=== PATIENT | female | born 1995 | race Caucasian/White ===

== ENCOUNTER 2021-09-24 16:48 | Emergency (ER) | payer MEDICAID, SELFPAY ==
--- NOTE | 2021-09-24 16:53 | USR_ITS ---
PROCEDURE INFORMATION: Exam: US , Transvaginal Exam date and time: 09/24/2021 5:11 PM Age: 26 years old Clinical indication: Lmp or gestational age (in weeks): Per patient 10w0d. Per US 8w1d; Antepartum complications; Bleeding; ; Additional info: Vaginal bleeding TECHNIQUE: Imaging protocol: Real-time transvaginal obstetrical ultrasound of the maternal pelvis with image documentation. Transvaginal imaging was used for better evaluation of the fetus, adnexa, and/or cervix. COMPARISON: US [facility] OB > 14 weeks 02/12/2018 11:12 AM FINDINGS: Gestation: Single intrauterine fetus. Negative for heart tones visualized, findings potentially reflect demise, close clinical correlation and interval follow-up exam advised. Placenta: 14 mm subchorionic hemorrhage suspected. BIOMETRY: Gestational age (AUA): Ultrasonographic age 8 weeks 0 days based on crown-rump length. US/US OB <=14 wk fetus w transvag IMPRESSION: 1. Single intrauterine fetus. 2. Ultrasonographic age 8 weeks 0 days based on crown-rump length. 3. Negative for heart tones visualized, findings potentially reflect demise, close clinical correlation and interval follow-up exam advised. 4. 14 mm subchorionic hemorrhage suspected.
[2021-09-24 17:02] VITALS: BP 106/72; PULSE 78; RESP 16; TEMP 36.8; O2SAT 99
[2021-09-24 18:26] LABS: Basophils # 0.1 10^3/uL (0.0-0.1); Basophils % 0.7 %; Eosinophils # 0.1 10^3/uL (0.0-0.8); Eosinophils % 1.5 %; Hematocrit 35.9 % (37.0-47.0); Hemoglobin 12.7 g/dL (11.5-15.3); Lymphocytes # 2.1 10^3/uL (0.8-4.8); Lymphocytes % 27.8 %; Mean Corpuscular HGB Conc 35.4 g/dL (30.0-36.0); Mean Corpuscular Hemoglobin 30.4 pg (28.0-34.0); Mean Corpuscular Volume 85.9 fl (81-99); Mean Platelet Volume 10.6 fL (7.4-10.4); Monocytes # 0.6 10^3/uL (0.2-0.9); Monocytes % 8.4 %; Neutrophils # 4.58 10^3/uL (1.8-7.7); Neutrophils % 61.3 %; Nucleated Red Blood Cells % 0 %; Platelet Count 178 10^3/cmm (130-400); Red Blood Count 4.18 10^6/uL (4.1-5.3); Red Cell Distribution Width 12.2 % (12.1-15.1); White Blood Count 7.5 10^3/uL (4.0-10.0)
--- NOTE | 2021-09-24 18:37 | W.ED.GENADLT ---
HPI - General Adult General: Chief complaint: Urogenital-Female Stated complaint: 10 weeks and bleeding Time Seen by Provider: 09/24/21 18:23 History of Present Illness: Patient is a 26-year-old female G2, P1 at 10 weeks presenting to the emergency room for concerns of 3 days of vaginal bleeding and cramps. Patient tells me that she first noticed spotting 3 days ago. Since then, patient has noticed increased bleeding today. Patient also reports cramps today. Patient denies any passage of clots or heavy bleeding. Patient denies any regular contractions. Patient denies any fever/chills, abdominal pain, diarrhea melena/hematochezia. Patient has no complaints or increased vaginal discharge different from her usual. Onset:3 days ago Duration:3 days Location:home Severity: moderate Associated symptoms: Deny chest pain, dyspnea, nausea, rash, palpitations or vomiting Review of Systems Const: Denies: fever(s) or chills Eyes: Denies: change in vision ENMT: Denies: mouth pain Card: Denies: chest pain or palpitations Resp: Denies: dyspnea or non-productive cough GI: Denies: abdominal pain, nausea, vomiting or diarrhea : Reports: other (+vaginal bleeding and cramps); Denies: dysuria Musc: Denies: extremity pain Skin/Breast: Denies: rash or new lesions Neuro: Denies: weakness in extremities Psych: Reports: other (Normal mood) Jose/Lymph: Denies: easy bruising PFSH ED PFSH: Medical History (Updated 09/24/21 @ 18:38 by Manuel Rick MD) IUP (intrauterine ), incidental Family History Father Hypertension Social History Smoking and tobacco status: former smoker Second hand smoke exposure: No Smoking risk assessment/counseling performed?: No Alcohol intake: never Desire information about alcohol rehabilitation?: No Counseling given: No Desire information about substance/drug rehabilitation?: No Counseling given: No Adopted: No Caregiver/support person: No Lives independently: Yes Household members: children Housing: Apartment Marital status: Single service: No Current occupational status: employed History of recent travel: No Physical Exam Const: COMMON NORMALS: alert HENMT: COMMON NORMALS: atraumatic HEAD & SCALP: atraumatic MOUTH: moist mucous membranes not abnormal Eye: COMMON NORMALS: EOMs intact bilaterally and conjunctivae normal CONJUNCTIVA: Yes conjunctivae normal Neck/C-Spine: COMMON NORMALS: full ROM and supple Resp: COMMON NORMALS: normal respiratory effort and clear to auscultation bilaterally AUSCULTATION: clear to auscultation bilaterally Cardio: COMMON NORMALS: regular rate RATE: regular rate GI: COMMON NORMALS: Soft to palpation and non-tender PALPATION: Yes Soft to palpation OTHER: No focal TTP. NO guarding rebound, guarding, rigidity. No CVA tenderness to percussion. Neg Hurley/Neg McBurney's point tenderness, no suprabupic tenderness to palpation. : OTHER: Exam deferred by patient to OB Extremity: COMMON NORMALS: full ROM Neuro: SENSORIUM/ORIENTATION: Yes alert MOTOR EXAM: No Abnormal motor strength present and Other motor observations present (no focal motor deficits) Psych: COMMON NORMALS: speech normal SPEECH: Yes normal speech MOOD & AFFECT: Yes euthymic mood Course Vital Signs: Vital signs: Vital Signs Temperature 98.3 F 09/24/21 17:02 Pulse Rate 78 09/24/21 17:02 Respiratory Rate 16 09/24/21 17:02 Blood Pressure 106/72 09/24/21 17:02 Pulse Oximetry 99 09/24/21 17:02 [facility] - General Adult Medical Decision Making Patient is a 26-year-old female G2, P1 at 10 weeks presenting to the emergency room with 3 days of vaginal bleeding with pelvic cramps. On physical exam, patient does not have any signs of conjunctival pallor. Hemoglobin of 12.7 today. Patient denies having active or heavy vaginal bleeding. I have offered pelvic exam however patient declined. Ultrasound showed IUP without any heart rate consistent with possible early demise. Given patient close follow-up with primary care provider for reassessment and reevaluation. Patient is O+ and will not require rhogam. I have given patient follow up with our telehealth case manager to be seen by our outpatient OB for reassessment for possible demise. Patient aware of a call from our telehealth case manager to schedule for appointment(s) and verbalizes understanding of the importance of following up. Patient reassures she will follow up with Dr. Roylance. Rx tylenol PRN pain Disposition: Discharge. Patient counseled regarding diagnostic impression, treatment plan. Patient given ED strict return precautions to return for continuation, worsening, or development of new symptoms. Instructed to f/u w/ OB regarding symptoms today. Patient verbalized understanding. Lab Data : 09/24/21 18:00 09/24/21 18:00 Radiology Impressions Obstetrics Ultrasound 09/24/21 16:53 IMPRESSION: 1. Single intrauterine fetus. 2. Ultrasonographic age 8 weeks 0 days based on crown-rump length. 3. Negative for heart tones visualized, findings potentially reflect demise, close clinical correlation and interval follow-up exam advised. 4. 14 mm subchorionic hemorrhage suspected. Laboratory Results WBC 7.5 10^3/uL (4.0-10.0) 09/24/21 18:00 RBC 4.18 10^6/uL (4.1-5.3) 09/24/21 18:00 Hgb 12.7 g/dL (11.5-15.3) 09/24/21 18:00 Hct 35.9 % (37.0-47.0) L 09/24/21 18:00 MCV 85.9 fl (81-99) 09/24/21 18:00 MCH 30.4 pg (28.0-34.0) 09/24/21 18:00 MCHC 35.4 g/dL (30.0-36.0) 09/24/21 18:00 RDW 12.2 % (12.1-15.1) 09/24/21 18:00 Plt Count 178 10^3/cmm (130-400) 09/24/21 18:00 MPV 10.6 fL (7.4-10.4) H 09/24/21 18:00 Neut % (Auto) 61.3 % 09/24/21 18:00 Lymph % (Auto) 27.8 % 09/24/21 18:00 [place] % (Auto) 8.4 % 09/24/21 18:00 Eos % (Auto) 1.5 % 09/24/21 18:00 Baso % (Auto) 0.7 % 09/24/21 18:00 Neut # (Auto) 4.58 10^3/uL (1.8-7.7) 09/24/21 18:00 Lymph # (Auto) 2.1 10^3/uL (0.8-4.8) 09/24/21 18:00 [place] # (Auto) 0.6 10^3/uL (0.2-0.9) 09/24/21 18:00 Eos # (Auto) 0.1 10^3/uL (0.0-0.8) 09/24/21 18:00 Baso # (Auto) 0.1 10^3/uL (0.0-0.1) 09/24/21 18:00 Nucleated RBC % (auto) 0 % 09/24/21 18:00 Nucleated RBCs # 0.0 /100WBC 09/24/21 18:00 Sodium 136 mmol/L (136-145) 09/24/21 18:00 Potassium 3.6 mmol/L (3.5-5.1) 09/24/21 18:00 Chloride 102 mmol/L (98-107) 09/24/21 18:00 Carbon Dioxide 24 mmol/L (22-29) 09/24/21 18:00 Anion Gap 13.6 (5-19) 09/24/21 18:00 BUN 8 mg/dL (6-20) 09/24/21 18:00 Creatinine 0.4 mg/dL (0.5-0.9) L 09/24/21 18:00 GFR Calculation 196.1 mL/min (90-130) H 09/24/21 18:00 Glucose 93 mg/dL (65-115) 09/24/21 18:00 Calculated Osmolality 280 mOsm/kg (285-295) L 09/24/21 18:00 Calcium 9.6 mg/dL (8.5-10.5) 09/24/21 18:00 Total Bilirubin 0.3 mg/dL (0.15-1.2) 09/24/21 18:00 AST 14 U/L (0-32) 09/24/21 18:00 ALT 11 U/L (0-33) 09/24/21 18:00 Alkaline Phosphatase 59 IU/L (35-105) 09/24/21 18:00 Total Protein 7.1 g/dL (6.6-8.7) 09/24/21 18:00 Albumin 4.9 g/dL (3.5-5.2) 09/24/21 18:00 Globulin 2.2 g/dL (1.3-4.6) 09/24/21 18:00 Lipase 25 U/L (13-60) 09/24/21 18:00 Ser , Semi-Qnt 21031.00 mIU/mL 09/24/21 18:00 Blood Type O Positive 09/24/21 18:00 Rho(D) Type Positive 09/24/21 18:00 Imaging Data Other Imaging: Radiologist's impression: [employer] [address] Ultrasound Report Signed Patient: Karen Gonzalez Unit #: [id number] : 1995 Age/Sex: 26 / F ADM Date: 09/24/21 Loc: ER Room/Bed: Attending Dr: Ordering Provider/Ordering MD: Manuel Rick MD Date of Service: 09/24/21 Procedure(s): US OB <=14 wk fetus w transvag Accession Number(s): [id number] Report Number: [id number] PROCEDURE INFORMATION: Exam: US , Transvaginal Exam date and time: 09/24/2021 5:11 PM Age: 26 years old Clinical indication: Lmp or gestational age (in weeks): Per patient 10w0d. Per US 8w1d; Antepartum complications; Bleeding; ; Additional info: Vaginal bleeding TECHNIQUE: Imaging protocol: Real-time transvaginal obstetrical ultrasound of the maternal pelvis with image documentation. Transvaginal imaging was used for better evaluation of the fetus, adnexa, and/or cervix. [place] [facility] [place] 14 [place] 11:12 AM FINDINGS: Gestation: Single intrauterine fetus. Negative for heart tones visualized, findings potentially reflect demise, close clinical correlation and interval follow-up exam advised. Placenta: 14 mm subchorionic hemorrhage suspected. BIOMETRY: Gestational age (AUA): Ultrasonographic age 8 weeks 0 days based on crown-rump length. US/US OB <=14 wk fetus w transvag IMPRESSION: 1. Single intrauterine fetus. 2. Ultrasonographic age 8 weeks 0 days based on crown-rump length. 3. Negative for heart tones visualized, findings potentially reflect demise, close clinical correlation and interval follow-up exam advised. 4. 14 mm subchorionic hemorrhage suspected. ? Dictated By: Fritz Mcclure MD Signed By: Fritz Mcclure MD Signed Date/Time: 09/24/21 1823 DD/ 171 Discharge Plan Discharge Patient Disposition: Home Clinical Impression: Threatened miscarriage Condition: Stable Prescriptions: New acetaminophen 500 mg tablet 500 mg PO Q6H PRN (Reason: pain) 5 Days Qty: 20 0RF No Action buspirone 10 mg tablet See Rx Instructions PO BID Qty: 60 5RF Rx Instructions: 1/2-1 tab as needed for anxiety BID citalopram [Celexa] 10 mg tablet 10 mg PO DAILY Qty: 30 5RF Discharge Orders: Discharge ED (Routine); Ordered 09/24/21 Ordered By: Manuel Rick Referrals: Milagros Gonzalez FNP-C [Primary Care Provider] - Discharge Diet: Advance as tolerated Discharge Activity: Increase activity as tolerated Patient Instructions: Miscarriage (ED) Activity Restrictions/Additional Instructions: Our telehealth case manager will have you follow-up with an obstretrician in the next few days. You would be expected to have a phone call with our telehealth case manager who will put you on the schedule. You can expect a call from us in the next 2-3 days. If you don't hear from us, call us back in the emergency room at [phone]. Here's a copy of your US report: [address] [address] Ultrasound Report Signed Patient: Karen Gonzalez Unit #: [id number] : 1995 Age/Sex: 26 / F ADM Date: 09/24/21 Loc: ER Room/Bed: Attending Dr: Ordering Provider/Ordering MD: Manuel Rick MD Date of Service: 09/24/21 Procedure(s): US OB <=14 wk fetus w transvag Accession Number(s): [id number] Report Number: [id number] PROCEDURE INFORMATION: Exam: US , Transvaginal Exam date and time: 09/24/2021 5:11 PM Age: 26 years old Clinical indication: Lmp or gestational age (in weeks): Per patient 10w0d. Per US 8w1d; Antepartum complications; Bleeding; ; Additional info: Vaginal bleeding TECHNIQUE: Imaging protocol: Real-time transvaginal obstetrical ultrasound of the maternal pelvis with image documentation. Transvaginal imaging was used for better evaluation of the fetus, adnexa, and/or cervix. [place] [facility] [place] > 14 weeks [place]/12/[place] 11:12 AM FINDINGS: Gestation: Single intrauterine fetus. Negative for heart tones visualized, findings potentially reflect demise, close clinical correlation and interval follow-up exam advised. Placenta: 14 mm subchorionic hemorrhage suspected. BIOMETRY: Gestational age (AUA): Ultrasonographic age 8 weeks 0 days based on crown-rump length. US/US OB <=14 wk fetus w transvag IMPRESSION: 1. Single intrauterine fetus. 2. Ultrasonographic age 8 weeks 0 days based on crown-rump length. 3. Negative for heart tones visualized, findings potentially reflect demise, close clinical correlation and interval follow-up exam advised. 4. 14 mm subchorionic hemorrhage suspected. ? Dictated By: Fritz Mcclure MD Signed By: Fritz Mcclure MD Signed Date/Time: 09/24/21 1823 DD/ 1711 Coding Level of Care Code ED Director Of Counseling for Chg Fwd Exam Comprehensive
[2021-09-24 18:52] LABS: Alanine Aminotransferase 11 U/L (0-33); Albumin Level 4.9 g/dL (3.5-5.2); Alkaline Phosphatase 59 IU/L (35-105); Anion Gap 13.6 (5-19); Aspartate Amino Transferase 14 U/L (0-32); Blood Urea Nitrogen 8 mg/dL (6-20); Calcium 9.6 mg/dL (8.5-10.5); Carbon Dioxide 24 mmol/L (22-29); Chloride 102 mmol/L (98-107); Globulin 2.2 g/dL (1.3-4.6); Glomerular Filtration Rate 196.1 mL/min (90-130); Glucose 93 mg/dL (65-115); Lipase 25 U/L (13-60); Osmolality Calculated 280 mOsm/kg (285-295); Potassium 3.6 mmol/L (3.5-5.1); Sodium 136 mmol/L (136-145); Total Bilirubin 0.3 mg/dL (0.15-1.2); Total Protein 7.1 g/dL (6.6-8.7)
--- NOTE | 2021-09-28 11:17 | DCPLANNER ---
Addendum entered by Jaelyn Lipscomb 10/30/21 13:34: patient is following up with primary care physician. Original Note: manager water wastewater had message to schedule a follow up appointment for patient with [facility]. manager water wastewater sent patients information to the front office staff at [facility]. Patients information will be printed and reviewed. Clinic will call patient with appointment information.
== END 2021-09-24 19:04 | disposition home or self-care (01) ==
PROVIDERS: Emergency Provider Emergency Medicine; PCP Nurse Practitioner Family
DX: O20.0 Threatened abortion (principal); Z3A.10 10 weeks gestation of pregnancy; Z87.891 Personal history of nicotine dependence
CPT/HCPCS: 76801; 76817; 80053; 83690; 84702; 85025; 86900; 99283

== ENCOUNTER 2021-10-05 08:17 | Emergency (ER) | payer MEDICAID, SELFPAY ==
[2021-10-05 08:29] VITALS: BP 107/64; PULSE 98; RESP 14; TEMP 36.9; O2SAT 99; BMI 19.0
[2021-10-05 08:35] VITALS: BP 98/71; PULSE 107; RESP 16; O2SAT 100
--- NOTE | 2021-10-05 08:41 | ED_ITS ---
HPI - Female Genitourinary General: Chief complaint: Vaginal Bleeding Stated complaint: vaginal bleeding Time Seen by Provider: 10/05/21 08:24 Source: patient and family Mode of arrival: ambulatory Limitations: no limitations History of Present Illness: Patient is a 26-year-old female who presents to [facility] ED today along with her mother for concerns of continued vaginal bleeding related to her recent miscarriage. Patient was seen at our facility on 09/24 for vaginal bleeding. She was approximately (by history) 10 weeks . Ultrasound at that time showed an 8-week gestation with no heart rate. hCG at that time was roughly 12,500. Patient states following her visit she continued to bleed and cramp for several days but states it had been improving. She followed up with her OB provider Dr. Desai who repeated hCG and patient thinks it was roughly 1600. He also performed pelvic exam. Patient states she became concerned yesterday evening when she began bleeding heavily and passing v polly large clots. She does report feeling a little lightheaded. Patient does not complain much of pelvic pain or cramping. MD elicited complaint: vaginal bleeding and other (active miscarriage ) Associated symptoms: Deny abdominal pain or nausea Review of Systems Const: Denies: fever(s), chills, body aches, fatigue or malaise Card: Denies: chest pain Resp: Denies: dyspnea GI: Denies: abdominal pain, nausea, vomiting or diarrhea : Reports: vaginal bleeding; Denies: flank pain, dysuria or pelvic pain Musc: Denies: back pain Neuro: Denies: weakness in extremities, difficulty walking or confusion [facility] ED PFSH: Medical History IUP (intrauterine ), incidental Family History Father Hypertension Social History Smoking and tobacco status: former smoker Second hand smoke exposure: No Smoking risk assessment/counseling performed?: No Alcohol intake: never Desire information about alcohol rehabilitation?: No Counseling given: No Desire information about substance/drug rehabilitation?: No Counseling given: No Adopted: No Caregiver/support person: No Lives independently: Yes Household members: children Housing: Apartment Marital status: Single service: No Current occupational status: employed History of recent travel: No Physical Exam Const: COMMON NORMALS: no acute distress, patient oriented x3, no limitations and alert GENERAL APPEARANCE: cooperative NUTRITIONAL APPEARANCE: thin ORIENTATION/CONSCIOUSNESS: Yes awake, Yes oriented to person, Yes oriented to place and Yes oriented to time HENMT: COMMON NORMALS: normocephalic and atraumatic HEAD & SCALP: normal to inspection, normocephalic and atraumatic Resp: COMMON NORMALS: normal respiratory effort and clear to auscultation bilaterally AUSCULTATION: clear to auscultation bilaterally Cardio: COMMON NORMALS: regular rate and regular rhythm RATE: regular rate RHYTHM: regular rhythm GI: COMMON NORMALS: Normal to inspection, nondistended, normoactive bowel sounds present, Soft to palpation, non-tender, No hepatosplenomegaly present and no masses PALPATION: Yes Soft to palpation and Yes No hepatosplenomegaly present : COMMON NORMALS: Yes no CVA tenderness BLADDER/KIDNEY EXAM: Yes no CVA tenderness Back/Pelvis: COMMON NORMALS: no CVA tenderness Extremity: GENERAL: Yes normal exam except as noted Neuro: PARISH COMA SCALE: document GCS findings Parish coma scale eye opening: Spontaneous Parish coma scale verbal response: Orientated Parish coma scale motor response: Obey commands Parish coma scale total score: 15 COMMON NORMALS: patient oriented x3, moves all extremities, no focal motor deficits and no sensory deficits noted SENSORIUM/ORIENTATION: Yes alert, Yes oriented to person, Yes oriented to place and Yes oriented to time Skin: COMMON NORMALS: no rashes or lesions noted GENERAL SKIN EXAM: no rashes or lesions noted Course Vital Signs: Vital signs: Vital Signs Temperature 98.4 F 10/05/21 08:29 Pulse Rate 98 10/05/21 08:29 Respiratory Rate 14 10/05/21 08:29 Blood Pressure 107/64 10/05/21 08:29 Pulse Oximetry 99 10/05/21 08:29 MDM - Female Medical Decision Making Patient's vital signs are stable. Her hemoglobin is 12.8 today which is actually higher than her last visit. hCG is roughly 1350 was continuing to trend downward. US shows passage of previously seen fetus. She still does have some clotted blood products consistent with an incomplete spontaneous AB. Discussed with patient that most women will bleed for approximately 8 to 14 days following diagnosis of a miscarriage. She needs to follow-up with her OB provider Dr. Desai next week if bleeding persists. Strict return to ED precautions given regarding the weekend/holiday weekend. Lab Data : 10/05/21 08:55 Radiology Impressions Transvaginal US 10/05/21 08:50 IMPRESSION: 1. Incomplete spontaneous . No pole or cardiac activity remain. 2. Heterogeneous clotted blood products along the endometrial canal. Laboratory Results WBC 6.4 10^3/uL (4.0-10.0) 10/05/21 08:55 RBC 4.26 10^6/uL (4.1-5.3) 10/05/21 08:55 Hgb 12.8 g/dL (11.5-15.3) 10/05/21 08:55 Hct 36.2 % (37.0-47.0) L 10/05/21 08:55 MCV 85.0 fl (81-99) 10/05/21 08:55 MCH 30.0 pg (28.0-34.0) 10/05/21 08:55 MCHC 35.4 g/dL (30.0-36.0) 10/05/21 08:55 RDW 12.2 % (12.1-15.1) 10/05/21 08:55 Plt Count 196 10^3/cmm (130-400) 10/05/21 08:55 MPV 10.5 fL (7.4-10.4) H 10/05/21 08:55 Neut % (Auto) 68.4 % 10/05/21 08:55 Lymph % (Auto) 23.0 % 10/05/21 08:55 [place] % (Auto) 7.2 % 10/05/21 08:55 Eos % (Auto) 0.6 % 10/05/21 08:55 Baso % (Auto) 0.5 % 10/05/21 08:55 Neut # (Auto) 4.36 10^3/uL (1.8-7.7) 10/05/21 08:55 Lymph # (Auto) 1.5 10^3/uL (0.8-4.8) 10/05/21 08:55 [place] # (Auto) 0.5 10^3/uL (0.2-0.9) 10/05/21 08:55 Eos # (Auto) 0.0 10^3/uL (0.0-0.8) 10/05/21 08:55 Baso # (Auto) 0.0 10^3/uL (0.0-0.1) 10/05/21 08:55 Nucleated RBC % (auto) 0 % 10/05/21 08:55 Nucleated RBCs # 0.0 /100WBC 10/05/21 08:55 Ser , Semi-Qnt 1344.00 mIU/mL 10/05/21 08:55 Discharge Plan Discharge Patient Disposition: Home Clinical Impression: Incomplete spontaneous Condition: Stable Prescriptions: No Action buspirone 10 mg tablet See Rx Instructions PO BID Qty: 60 5RF Rx Instructions: 1/2-1 tab as needed for anxiety BID citalopram [Celexa] 10 mg tablet 10 mg PO DAILY Qty: 30 5RF Discharge Orders: Discharge ED (Routine); Ordered 10/05/21 Ordered By: Lexy Medina Patient Instructions: Spontaneous Coding Level of Care Code ED Chemical Sprayer for [place] Fwd Exam Comprehensive
--- NOTE | 2021-10-05 08:50 | US_ITS ---
WS: [id number] Obstetrical ultrasound, early. COMPARISON: 09/24/2021. HISTORY: Vaginal bleeding with cramping. Transvaginal imaging is performed. Anteverted uterus. The previously described intrauterine gestation is no longer present. There is now heterogeneous material within the endometrial canal consistent wi th clotted blood. No cardiac activity or pole is identified. The cervix is closed. No free fluid. Both ovaries are identified and normal size. No adnexal mass. US/US OB transvaginal [id number] IMPRESSION: 1. Incomplete spontaneous . No pole or cardiac activity remain. 2. Heterogeneous clotted blood products along the endometrial canal.
[2021-10-05] MEDS: sodium chloride 0.9% 1,000 ML 999 ML IV (09:01)
[2021-10-05 09:05] VITALS: BP 102/73; PULSE 100; RESP 15; O2SAT 96
[2021-10-05 09:09] LABS: Basophils % 0.5 %; Eosinophils % 0.6 %; Hematocrit 36.2 % (37.0-47.0); Hemoglobin 12.8 g/dL (11.5-15.3); Lymphocytes # 1.5 10^3/uL (0.8-4.8); Mean Corpuscular HGB Conc 35.4 g/dL (30.0-36.0); Mean Platelet Volume 10.5 fL (7.4-10.4); Monocytes # 0.5 10^3/uL (0.2-0.9); Monocytes % 7.2 %; Neutrophils # 4.36 10^3/uL (1.8-7.7); Neutrophils % 68.4 %; Nucleated Red Blood Cells % 0 %; Platelet Count 196 10^3/cmm (130-400); Red Blood Count 4.26 10^6/uL (4.1-5.3); Red Cell Distribution Width 12.2 % (12.1-15.1); White Blood Count 6.4 10^3/uL (4.0-10.0)
[2021-10-05 09:35] VITALS: BP 95/69; PULSE 87; RESP 14; O2SAT 100
[2021-10-05 10:03] VITALS: BP 96/67; PULSE 95; RESP 14; O2SAT 100
== END 2021-10-05 10:05 | disposition home or self-care (01) ==
PROVIDERS: Emergency Provider Physician Assistant
DX: O03.4 Incomplete spontaneous abortion without complication (principal); Z87.891 Personal history of nicotine dependence
CPT/HCPCS: 76817; 84702; 85025; 96360; 99284; J7030

== ENCOUNTER → 2021-10-11 16:16 | Outpatient (BNVA) | payer MEDICAID, SELFPAY | PROVIDERS: Visit Provider Nurse Practitioner Family | DX: N93.9 Abnormal uterine and vaginal bleeding, unspecified (principal); O03.9 Complete or unspecified spontaneous abortion without complication; R42 Dizziness and giddiness; N39.0 Urinary tract infection, site not specified | CPT/HCPCS: 80053; 84443; 85025 ==

== ENCOUNTER → 2021-10-12 08:46 | Outpatient (BNVA) | payer MEDICAID, SELFPAY | PROVIDERS: Visit Provider Nurse Practitioner Family | DX: N93.9 Abnormal uterine and vaginal bleeding, unspecified (principal); O03.9 Complete or unspecified spontaneous abortion without complication; R30.0 Dysuria; R42 Dizziness and giddiness; R82.90 Unspecified abnormal findings in urine | CPT/HCPCS: 81000; 87077; 87086; 87184 ==

== ENCOUNTER → 2021-12-05 15:46 | Outpatient (BNVA) | payer MEDICAID, SELFPAY | PROVIDERS: Visit Provider Nurse Practitioner Family | DX: N60.02 Solitary cyst of left breast (principal); R10.9 Unspecified abdominal pain; K59.00 Constipation, unspecified; L72.9 Follicular cyst of the skin and subcutaneous tissue, unspecified; L08.9 Local infection of the skin and subcutaneous tissue, unspecified | CPT/HCPCS: 87070; 87077; 87184 ==

== ENCOUNTER → 2021-12-06 08:13 | Outpatient (BNVA) | payer MEDICAID, SELFPAY | PROVIDERS: Visit Provider Nurse Practitioner Family | DX: K59.00 Constipation, unspecified (principal); R10.9 Unspecified abdominal pain | CPT/HCPCS: 74018 ==

== ENCOUNTER 2022-02-25 12:58 | Outpatient (CLI) | payer MEDICAID, SELFPAY ==
--- NOTE | 2022-02-25 13:07 | US_ITS ---
WS: [id number] ULTRASOUND BREAST LEFT TECHNIQUE: Ultrasound left breast focused area of concern. CLINICAL INFORMATION: L BREAST PAIN. Nipple discharge. History of staph infection. COMPARISON: None. FINDINGS: Ultrasound LEFT breast at the nipple demonstrates dilated ducts deep to the nipple compatible with hi story of mastitis and staph infection. Intraductal debris is visualized in the subareolar ducts. No e vidence of drainable abscess or fluid collection. Recommend interval follow-up after antibiotic treat ment to ensure resolution and no abscess formation. Additional ovoid hypoechoic lesions at the 1:00 position measuring 6.3 x 7.6 x 3.6 mm and at the 2:00 position measuring 9.9 x 7.6 x 4.1 mm likely fibroadenomas in a patient this age. IMPRESSION: BI-RADS 3 probably benign US/US breast LT limited* [id number] FOLLOW UP: See report Recommend ultrasound LEFT breast follow-up after antibiotic treatment In addition, recommend ultrasound LEFT breast follow-up in 6 months with attent ion to the suspected fibroadenomas.
== END 2022-02-25 12:59 | disposition home or self-care (01) ==
LOC: RAD 13:01
PROVIDERS: PCP Family Medicine; Visit Provider Family Medicine
DX: N64.4 Mastodynia (principal); N64.52 Nipple discharge
CPT/HCPCS: 76642

== ENCOUNTER 2022-04-03 07:49 | Outpatient (CLI) | payer MEDICAID, SELFPAY ==
--- NOTE | 2022-04-03 07:58 | US_ITS ---
WS: [id number] ULTRASOUND BREAST LEFT TECHNIQUE: Ultrasound left breast focused area of concern. CLINICAL INFORMATION: L BREAST PAIN COMPARISON: February 25, 2022 FINDINGS: Ultrasound LEFT breast at the areola demonstrates no evidence of abscess or drainable collection. Pre viously described subareolar dilated ducts appear less prominent today. In addition, the previously described hypoechoic ovoid lesions suspected to represent fibroadenomas i n a patient this age are stable in appearance measuring approximately 0.6 x 0.8 x 0.4 cm at the 1:00 position 2 cm from the nipple and 1.0 x 0.6 x 0.4 cm at the 2:00 position 3 cm from the nipple. US/US breast LT limited* [id number] IMPRESSION: Recommend 6 month follow-up ultrasound LEFT breast with attention to the suspec jet fibroadenomas.
== END 2022-04-03 07:50 | disposition home or self-care (01) ==
LOC: RAD 07:52
PROVIDERS: PCP Family Medicine; Visit Provider Family Medicine
DX: N64.4 Mastodynia (principal)
CPT/HCPCS: 76642

== ENCOUNTER → 2023-05-19 15:54 | Outpatient (BNVA) | payer MEDICAID, SELFPAY | PROVIDERS: PCP Family Medicine; Visit Provider Nurse Practitioner Family | DX: R50.9 Fever, unspecified (principal) | CPT/HCPCS: 87400 ==

== ENCOUNTER 2024-01-21 13:25 | Outpatient (CLI) | payer MEDICAID, SELFPAY ==
[2024-01-21 13:25] VITALS: BMI 24.2
[2024-01-21 13:37] VITALS: BP 124/76; PULSE 81
[2024-01-21 14:19] VITALS: BP 114/72; PULSE 86
[2024-01-21 14:37] VITALS: BP 119/70; PULSE 86
[2024-01-21 14:49] LABS: Bilirubin Urine Negative (Negative); Blood Urine Negative (Negative); Glucose Urine UA Negative (Normal); Ketones Urine Negative (Negative); Leukocyte Esterase Urine 1+ (Negative); Nitrate Urine Negative (Negative); Protein Urine Negative (Negative); Specific Gravity, Urine 1.005 (1.005-1.030); Urine Appearance Clear (CLEAR); Urine Color Yellow (Yellow); Urobilinogen Urine 0.2 mg/dL (Negative); pH Urine 6.5 (5-7)
[2024-01-21 14:51] LABS: Add Urine Microscopic? YES; Bacteria Urine None Seen /hpf; Hyaline Casts Urine 0-4 /lpf; RBC Urine 0-2 /hpf (0-2); Squamous Epithelial Cell Urine 0-5 /hpf (0-5)
[2024-01-21 14:57] VITALS: BP 109/70; PULSE 80
[2024-01-21 15:17] VITALS: BP 110/68; PULSE 78
[2024-01-21 15:20] LABS: Add Urine Culture? No
== END 2024-01-21 15:36 | disposition home or self-care (01) ==
LOC: OPOB 13:28 → OBGYN 13:28
PROVIDERS: PCP Family Medicine; Visit Provider Family Medicine
DX: O36.8190 Decreased fetal movements, unspecified trimester, not applicable or unspecified (principal); Z3A.00 Weeks of gestation of pregnancy not specified
CPT/HCPCS: 81001; 99211

== ENCOUNTER 2024-03-14 19:54 | Outpatient (CLI) | payer MEDICAID, SELFPAY ==
[2024-03-14] VITALS (8 sets, daily range): BP systolic 99–118; BP diastolic 66–84; PULSE 81–102; RESP 16; TEMP 36.6; BMI 26.7
[2024-03-14 20:50] LABS: Bilirubin Urine Negative (Negative); Blood Urine Negative (Negative); Glucose Urine UA Negative (Normal); Ketones Urine Negative (Negative); Leukocyte Esterase Urine 1+ (Negative); Nitrate Urine Negative (Negative); Protein Urine Negative (Negative); Specific Gravity, Urine 1.011 (1.005-1.030); Urine Appearance Clear (CLEAR); Urine Color Yellow (Yellow); Urobilinogen Urine 0.2 mg/dL (Negative); pH Urine 6.5 (5-7)
[2024-03-14 20:57] LABS: Bacteria Urine TRACE /hpf; RBC Urine 0-4 /hpf (0-2)
== END 2024-03-14 22:43 | disposition home or self-care (01) ==
LOC: OPOB 19:55 → OBGYN 19:55
PROVIDERS: PCP Family Medicine; Visit Provider Family Medicine
DX: O26.899 Other specified pregnancy related conditions, unspecified trimester (principal); Z3A.00 Weeks of gestation of pregnancy not specified; R10.9 Unspecified abdominal pain
CPT/HCPCS: 59025; 81001; 99211

== ENCOUNTER 2024-03-24 19:54 | Outpatient (CLI) | payer MEDICAID, SELFPAY ==
[2024-03-24] VITALS (9 sets, daily range): BP systolic 89–116; BP diastolic 51–77; PULSE 77–84; RESP 16; TEMP 36.7; O2SAT 100; BMI 26.6
[2024-03-24 21:25] LABS: Bacteria Urine None Seen /hpf; Bilirubin Urine Negative (Negative); Blood Urine Negative (Negative); Glucose Urine UA Negative (Normal); Hyaline Casts Urine 0-4 /lpf; Ketones Urine Negative (Negative); Leukocyte Esterase Urine 1+ (Negative); Nitrate Urine Negative (Negative); Protein Urine Negative (Negative); RBC Urine 0-2 /hpf (0-2); Specific Gravity, Urine 1.005 (1.005-1.030); Squamous Epithelial Cell Urine 0-5 /hpf (0-5); Urine Appearance Clear (CLEAR); Urine Color Yellow (Yellow); pH Urine 6.5 (5-7)
[2024-03-25 01:30] LABS: Nitrazine Paper, PH Negative
== END 2024-03-24 22:30 | disposition home or self-care (01) ==
LOC: OPOB 19:59 → OBGYN 20:02
PROVIDERS: PCP Family Medicine; Visit Provider Family Medicine
DX: O26.899 Other specified pregnancy related conditions, unspecified trimester (principal); Z3A.00 Weeks of gestation of pregnancy not specified; N89.8 Other specified noninflammatory disorders of vagina
CPT/HCPCS: 59025; 81001; 83986; 99211

== ENCOUNTER 2024-04-03 18:25 | Outpatient (CLI) | payer MEDICAID, SELFPAY ==
[2024-04-03 18:25] VITALS: BMI 27.1
[2024-04-03 18:51] VITALS: BP 124/75; PULSE 80
[2024-04-03 19:06] VITALS: BP 126/57; PULSE 102
[2024-04-03 19:20] LABS: Nitrazine Paper, PH Negative
== END 2024-04-03 19:15 | disposition home or self-care (01) ==
LOC: OPOB 18:29 → OBGYN 18:29
PROVIDERS: PCP Family Medicine; Visit Provider Family Medicine
DX: O26.899 Other specified pregnancy related conditions, unspecified trimester (principal); Z3A.00 Weeks of gestation of pregnancy not specified; N89.8 Other specified noninflammatory disorders of vagina
CPT/HCPCS: 59025; 83986; 99211

== ENCOUNTER 2024-04-11 13:55 | Inpatient (IN) | payer MEDICAID, SELFPAY ==
[2024-04-11] VITALS (16 sets, daily range): BP systolic 108–127; BP diastolic 66–85; PULSE 82–106; RESP 18; TEMP 36.8; O2SAT 95; BMI 27.1
--- NOTE | 2024-04-11 14:43 | PM.OPHPUD ---
Labor & Delivery H&P Update Date of Procedure: April 11, 2024 Date H&P Performed: 04/05/24 Changes to previous documentation: Status post precipitous vaginal delivery outside facility Admission Diagnosis: Status post precipitous vaginal delivery outside facility Planned procedure: care Other information: The patient is a healthy 28-year-old 4 para 1-0-2-1 at 38 weeks and 3 days who presented to the hospital via ambulance after having a precipitous delivery outside the facility.. The EMS providers, the delivery was unremarkable. Apgars were 8 and 9. Bleeding was within normal limits. She arrived to the hospital with her placenta intact but came out shortly after Pitocin was added. The patient's was otherwise relatively unremarkable. She had consistent care. Her blood type is O+. Antibody negative. She was GBS positive. She is rubella immune. She passed her glucose screen. The remainder of her infectious disease profile is within normal limits. Related Problem List Diagnoses (1) 38 weeks gestation of : (2) Positive GBS test: (3) Labor, precipitous, delivered: I anticipate routine care. A&P Assessment and plan (1) 38 weeks gestation of : Status: Acute (2) Positive GBS test: Status: Acute (3) Labor, precipitous, delivered: Status: Acute
--- NOTE | 2024-04-11 14:50 | P.PCNOB_ITS ---
Delivery Note: Date of delivery: April 11, 2024 Pre-delivery diagnoses: 1. 28-year-old 4 para 1-0-2-1 a t 38 weeks and 3 days with a precipitous delivery outside the facility Post-delivery diagnoses: Status post precipitous vaginal delivery Procedure: evaluation status post precipitous delivery of baby and placenta Delivering Physician: Law Desai Pre-Delivery Course: Please refer to H&P update Delivery: The patient arrived to the hospital via ambulance status post precipitous delivery. Per report, she delivered a male with a weight of 6 pounds 10 ounces with Apgars of 8, 9. The baby was delivered from a vertex position. The placenta and 3 vessel cord were examined by myself after was delivered. The perineum and vaginal vault were carefully examined. She was noted to have superficial lacerations both posterior midline, and to the labia minora on her upper right side. Neither required repair. Both the mother and the baby were in stable condition. Post-Delivery Status: Good A&P Assessment and plan (1) Labor, precipitous, delivered: I anticipate routine care (2) 38 weeks gestation of : Coding Level of Care Code Acute Code for Chg Fwd Diagnoses Labor, precipitous, delivered O62.3 38 weeks gestation of Z3A.38
[2024-04-11 15:33] LABS: Hematocrit 32.9 % (36-47); Mean Corpuscular HGB Conc 32.2 g/dL (30-55); Mean Corpuscular Hemoglobin 26.8 pg (27-33); Mean Corpuscular Volume 83.3 fl (85-98); Mean Platelet Volume 10.4 fL (7.4-10.4); Platelet Count 170 10^3/cmm (157-399); Red Blood Count 3.95 10^6/uL (3.85-5.65); Red Cell Distribution Width 14.5 % (12.1-15.1); White Blood Count 19.92 10^3/uL (3.29-11.43)
--- NOTE | 2024-04-11 18:46 | PC.NURSE ---
1840 PATIENT UP TO BATHROOM AND THEN WE MOVED TO OB 9, ORIENTED TO ROOM, CALL LIGHT ETC. LOTS OF VISITORS SO WILL LET CAMPAIGN MANAGEMENT SENIOR MANAGER GO OVER PP PACK WITH PARENTS LATER AFTER VISITORS LEAVE.
[2024-04-11] MEDS: docusate sodium 100 mg Capsule PO (20:35)
[2024-04-11] MEDS: ibuprofen 800 mg tablet PO (20:35)
[2024-04-11] MEDS: lanolin oint 7 gm 1 APPLIC TOPICAL (20:35)
[2024-04-12 00:44] VITALS: BP 107/65; PULSE 88; RESP 18; TEMP 36.7; O2SAT 96
[2024-04-12 03:36] VITALS: BP 114/77; PULSE 80; RESP 18; TEMP 36.8; O2SAT 96
[2024-04-12 03:44] LABS: Mean Corpuscular HGB Conc 32.8 g/dL (30-55); Mean Corpuscular Hemoglobin 27.1 pg (27-33); Mean Corpuscular Volume 82.7 fl (85-98); Mean Platelet Volume 9.9 fL (7.4-10.4); Platelet Count 158 10^3/cmm (157-399); Red Blood Count 3.87 10^6/uL (3.85-5.65); Red Cell Distribution Width 14.6 % (12.1-15.1); White Blood Count 16.59 10^3/uL (3.29-11.43)
--- NOTE | 2024-04-12 09:12 | P.DS_ITS ---
Discharge Providers CIVILIAN TECHNICIAN Date of Admission: 04/11/24 14:18 Date of Discharge: 04/12/24 Attending Provider at Admission: Law Desai MD Attending Provider at Discharge: Law Desai MD Primary Care Provider: Law Desai MD Diagnoses at Discharge Discharge Diagnosis (1) Labor, precipitous, delivered: Status: Acute (2) 38 weeks gestation of : Status: Acute Reason for Visit Reason for Visit: Home Delivery Hospital Course Hospital Course The patient presented to the hospital via EMS having already delivered her baby. The delivery was unremarkable. She is evaluated after presenting to the hospital and there were no complications. She had only minimal tearing that did not require repair. Her course is also been unremarkable. She is breast-feeding well. Her bleeding is been within normal limits. Her pain is been well-controlled. Information Peripartum Data: Delivery Method: Vaginal Physical Exam Narrative: The patient is alert. She appears comfortable. Her heart has a regular rate and rhythm with no murmurs appreciated. Lungs are clear to auscultation bilaterally. Her fundus is firm and below the umbilicus. Discharge Data Studies Completed and Pending Laboratory Results WBC 16.59 10^3/uL (3.29-11.43) H 04/12/24 03:35 RBC 3.87 10^6/uL (3.85-5.65) 04/12/24 03:35 Hgb 10.50 g/dL (11.27-16.99) L 04/12/24 03:35 Hct 32.0 % (36-47) L 04/12/24 03:35 MCV 82.7 fl (85-98) L 04/12/24 03:35 MCH 27.1 pg (27-33) 04/12/24 03:35 MCHC 32.8 g/dL (30-55) 04/12/24 03:35 RDW 14.6 % (12.1-15.1) 04/12/24 03:35 Plt Count 158 10^3/cmm (157-399) 04/12/24 03:35 MPV 9.9 fL (7.4-10.4) 04/12/24 03:35 Blood Type O Positive 04/11/24 14:25 Rho(D) Type Rh positive 04/11/24 14:25 Vitals Last Vital Signs Temp 98.2 F 04/12/24 03:36 Pulse 80 04/12/24 03:36 Resp 18 04/12/24 03:36 BP 114/77 04/12/24 03:36 Pulse Ox 96 04/12/24 03:36 O2 Del Method Room Air 04/12/24 03:36 Results Labs OB ([facility]): Blood Type O Positive 04/11/24 Hct 32.0 % (36-47) L 04/12/24 Hgb 10.50 g/dL (11.27-16.99) L 04/12/24 Rho(D) Type Rh positive 04/11/24 Plt Count 158 10^3/cmm (157-399) 04/12/24 Discharge Plan Discharge Patient Disposition: Home Condition: Stable Prescriptions: New ibuprofen 800 mg Tablet 800 mg PO TID Qty: 45 0RF Vitamin 27 mg iron- 800 mcg Tablet 1 tab PO DAILY Qty: 90 3RF Discontinued iron 1 tab PO DAILY Discharge Orders: Discharge Order (Routine); Ordered 04/12/24 Ordered By: Law Desai Referrals: Law Desai MD [Primary Care Provider] - 6 Weeks Discharge Diet: Usual diet Discharge Activity: Limit activity as instructed Patient Instructions: Opioid Safety Discharge Attestations CIVILIAN TECHNICIAN Time Spent in Discharge Care*: less than 30 min Coding Level of Care Code Acute Code for Chg Fwd Diagnoses Labor, precipitous, delivered O62.3 38 weeks gestation of Z3A.38
[2024-04-12] MEDS: ibuprofen 800 mg tablet PO ×2 (09:17→16:24)
[2024-04-12] MEDS: PRENATAL VIT NO.130/IRON/FOLIC 1 EACH TABLET PO (09:17)
[2024-04-12] MEDS: docusate sodium 100 mg Capsule PO (09:17)
[2024-04-12 09:20] VITALS: BP 117/82; PULSE 94; RESP 17; O2SAT 96
[2024-04-12] MEDS: benzocaine-menthol 78 gm Canister 1 SPRAY TOPICAL (09:24)
[2024-04-12 15:19] VITALS: BP 107/70; PULSE 98; RESP 17; TEMP 36.9; O2SAT 97
[2024-04-12 16:26] VITALS: BP 107/70; PULSE 98; RESP 17; TEMP 36.9; O2SAT 97
== END 2024-04-12 16:26 | disposition home or self-care (01) | DRG 776 ==
LOC: OBGYN 04-12 16:13 → OPOB 04-13 08:14
PROVIDERS: Admitting Provider Family Medicine; PCP Family Medicine; Visit Provider Family Medicine
DX: Z39.0 Encounter for care and examination of mother immediately after delivery (principal)
CPT/HCPCS: 36415; 59409; 85027; 86900; 99211